=== PATIENT | female | born 1955 | race Caucasian/White ===

== ENCOUNTER 2018-02-08 08:41 | Emergency (ER) | payer OTHER | END 2018-02-08 10:12 | disposition home or self-care (01) | LOC: FTE 08:41 | DX: H92.01 Otalgia, right ear (principal); E11.9 Type 2 diabetes mellitus without complications; Z79.82 Long term (current) use of aspirin; Z79.84 Long term (current) use of oral hypoglycemic drugs | CPT/HCPCS: 99283; Z7502 ==

== ENCOUNTER 2019-01-15 15:24 | Inpatient (IN) | payer OTHER ==
[2019-01-15 15:58] LABS: ADD MAN DIFF? NO
[2019-01-15 16:00] LABS: BASOPHIL # 0.1 10^3/ul (0.0-0.1); BASOPHILS % 0.4 % (0.0-2.0); HEMOGLOBIN 13.4 g/dl (12.0-16.0); LYMPHOCYTES # 0.7 10^3/ul (0.8-2.9); LYMPHOCYTES % 4.9 % (15.0-51.0); MEAN CORPUSCULAR HEMOGLOBIN 28.9 pg (29.0-33.0); MEAN CORPUSCULAR HGB CONC 34.4 g/dl (32.0-37.0); MEAN CORPUSCULAR VOLUME 84.2 fl (82.0-101.0); MEAN PLATELET VOLUME 10.7 fl (7.4-10.4); MONOCYTE # 0.5 10^3/ul (0.3-0.9); MONOCYTES % 3.3 % (0.0-11.0); NEUTROPHIL # 12.8 10^3/ul (1.6-7.5); NEUTROPHILS % 90.8 % (39.0-77.0); PLATELET COUNT 177 10^3/UL (140-415); RED BLOOD COUNT 4.63 10^6/ul (4.20-5.40); RED CELL DISTRIBUTION WIDTH 12.2 % (11.5-14.5)
[2019-01-15 16:00] LABS: WHITE BLOOD COUNT 14.1 10^3/ul (4.8-10.8)
[2019-01-15] MEDS: SODIUM CHLORIDE 0.9% 1L BAG IV* (16:01)
[2019-01-15 16:17] LABS: ALANINE AMINOTRANSFERASE 37 IU/L (13-69); ALBUMIN 4.3 g/dl (3.3-4.9); ALKALINE PHOSPHATASE 197 IU/L (42-121); ANION GAP 17 (5-13); ASPARTATE AMINO TRANSFERASE 41 IU/L (15-46); BILIRUBIN,INDIRECT 0.4 mg/dl (0-1.1); BILIRUBIN,TOTAL 0.4 mg/dl (0.2-1.3); BLOOD UREA NITROGEN 26 mg/dl (7-20); CALCIUM 10.1 mg/dl (8.4-10.2); CARBON DIOXIDE 21 mmol/L (21-31); CHLORIDE 91 mmol/L (97-110); CREATININE 0.76 mg/dl (0.44-1.00); Estimated GFR > 60 mL/min (>60); SODIUM 129 mmol/L (135-144); TOTAL PROTEIN 8.2 g/dl (6.1-8.1)
[2019-01-15 16:20] LABS: PROTIME 17.3 Sec (11.9-14.9); PT RATIO 1.4
[2019-01-15 16:21] LABS: PARTIAL THROMBOPLASTIN TIME 42.5 Sec (23.0-35.0)
[2019-01-15 16:23] LABS: GLUCOSE 531 mg/dl (70-220)
[2019-01-15 16:29] LABS: TROPONIN-I < 0.012 ng/ml (0.000-0.120)
[2019-01-15] MEDS: CEFEPIME 1GM/50 ML (PMX) 50 ML IVPB ×2 (16:36→23:53)
[2019-01-15 16:56] LABS: PHOSPHORUS 2.1 mg/dl (2.5-4.9)
[2019-01-15 16:56] LABS: MAGNESIUM 1.9 mg/dl (1.7-2.5)
[2019-01-15] MEDS: VANCOMYCIN 1 GM (PMX) 250 ML IVPB (17:01)
[2019-01-15 17:22] LABS: MODE ROOM AIR; MetHgb Venous 0.3 %; Sample Type Blood venous; Site VENOUS LINE; Venous COHb 0.3 %; Venous Fraction OxyHgb 40.6 %; Venous Oxygen Sat 40.8 mmHG (55.0-75.0); Venous Total Hemglobin 13.2 g/dl
[2019-01-15] MEDS: KETOROLAC 15 MG INJ IV (17:44)
[2019-01-15] MEDS: ACETAMINOPHEN 325 MG TAB PO (17:44)
[2019-01-15 17:48] LABS: ADD UMIC YES; UR ASCORBIC ACID NEGATIVE (NEGATIVE); UR BACTERIA FEW /HPF (NONE SEEN); UR BILIRUBIN (Dip) NEGATIVE (NEGATIVE); UR BLOOD (Dip) 1+ mg/dL (NEGATIVE); UR CLARITY CLEAR (CLEAR); UR COLOR YELLOW (YELLOW); UR GLUCOSE (Dip) 3+ mg/dL (NEGATIVE); UR KETONES (Dip) 1+ mg/dL (NEGATIVE); UR LEUKOCYTE ESTERASE (Dip) TRACE Leu/ul (NEGATIVE); UR NITRITE (Dip) NEGATIVE (NEGATIVE); UR RBC 1 /HPF (0-5); UR SPECIFIC GRAVITY (Dip) 1.023 (1.003-1.030); UR TOTAL PROTEIN (Dip) 1+ mg/dl (NEGATIVE); UR UROBILINOGEN (Dip) NEGATIVE (NEGATIVE); UR WBC 23 /HPF (0-5)
[2019-01-15] MEDS: SOD CHLORIDE 0.9% 1,000 ML IV (18:15)
[2019-01-15] MEDS ORDERED: ONDANSETRON 4 MG INJ IV (19:00)
[2019-01-15] MEDS ORDERED: ACETAMINOPHEN 325 MG TAB PO (19:00)
[2019-01-15 22:36] LABS: LACTIC ACID 1.8 mmol/L (0.5-2.0)
[2019-01-15] MEDS ORDERED: HYDROCODONE/APAP (5/325) TAB PO (23:00)
[2019-01-15] MEDS ORDERED: IBUPROFEN 800 MG TAB PO (23:00)
[2019-01-15] MEDS ORDERED: NS + KCL 20 MEQ 1,000 ML IV (23:00)
[2019-01-15] MEDS ORDERED: GLUCAGON 1 MG INJ IM (23:30)
[2019-01-15] MEDS ORDERED: GLUCOSE GEL 15 GRAM TUBE BUCCAL (23:30)
[2019-01-15] MEDS ORDERED: GLUCOSE GEL 15 GRAM TUBE PO ×2 (23:30)
[2019-01-15] MEDS ORDERED: DEXTROSE 50% 50 ML SYRINGE IV ×2 (23:30)
[2019-01-15 23:55] LABS: GLUCOSE 484 mg/dl (70-220)
[2019-01-16] MEDS: INSULIN ASPART [NOVOLOG] 3 ML PEN SC ×8 (00:01→20:51)
[2019-01-16] MEDS: SOD CHLORIDE 0.9% 1,000 ML IV ×2 (00:02→13:20)
[2019-01-16] MEDS: ACCU-CHEK XX ×3 (02:00→20:52)
[2019-01-16 05:55] LABS: ADD MAN DIFF? NO
[2019-01-16 06:05] LABS: BASOPHIL # 0.1 10^3/ul (0.0-0.1); BASOPHILS % 0.4 % (0.0-2.0); EOSINOPHILS % 0.1 % (0.0-7.0); HEMATOCRIT 34.6 % (37.0-47.0); HEMOGLOBIN 11.5 g/dl (12.0-16.0); LYMPHOCYTES # 0.9 10^3/ul (0.8-2.9); LYMPHOCYTES % 7.2 % (15.0-51.0); MEAN CORPUSCULAR HEMOGLOBIN 28.9 pg (29.0-33.0); MEAN CORPUSCULAR HGB CONC 33.2 g/dl (32.0-37.0); MEAN CORPUSCULAR VOLUME 86.9 fl (82.0-101.0); MEAN PLATELET VOLUME 11.5 fl (7.4-10.4); NEUTROPHILS % 83.6 % (39.0-77.0); PLATELET COUNT 147 10^3/UL (140-415); RED BLOOD COUNT 3.98 10^6/ul (4.20-5.40); RED CELL DISTRIBUTION WIDTH 12.7 % (11.5-14.5)
[2019-01-16 06:17] LABS: HEMOGLOBIN A1C 11.5 % (0-5.9)
[2019-01-16 06:31] LABS: ANION GAP 9 (5-13); BLOOD UREA NITROGEN 20 mg/dl (7-20); CALCIUM 8.9 mg/dl (8.4-10.2); CARBON DIOXIDE 20 mmol/L (21-31); CHLORIDE 106 mmol/L (97-110); CREATININE 0.46 mg/dl (0.44-1.00); Estimated GFR > 60 mL/min (>60); GLUCOSE 349 mg/dl (70-220); POTASSIUM 4.1 mmol/L (3.5-5.1); SODIUM 135 mmol/L (135-144)
[2019-01-16] MEDS: CEFEPIME 1GM/50 ML (PMX) 50 ML IVPB ×2 (08:42→20:43)
[2019-01-16] MEDS: ASPIRIN (EC) 81 MG TAB PO (08:43)
[2019-01-16] MEDS: ACETAMINOPHEN 325 MG TAB PO (08:43)
[2019-01-16] MEDS: MAGNESIUM OXIDE 400 MG TAB PO ×2 (08:43→20:43)
[2019-01-16] MEDS: LETROZOLE 2.5 MG TAB PO (09:12)
[2019-01-16] MEDS: ENOXAPARIN 40 MG/0.4 ML SYG SC (09:40)
[2019-01-16] MEDS: CHOLECALCIFEROL 2,000 UNIT CAP PO (09:41)
[2019-01-16] MEDS: INSULIN GLARGINE [LANTus] (100 UNITS/ML) SYG SC (11:15)
[2019-01-16] MEDS: metFORMIN 500 MG TAB PO (17:42)
[2019-01-16] MEDS: ATORVASTATIN 10 MG TAB PO (20:44)
[2019-01-16] MEDS: BISACODYL (EC) 5 MG TAB PO (22:12)
[2019-01-17] MEDS: ACCU-CHEK XX ×5 (01:50→20:32)
[2019-01-17] MEDS: SOD CHLORIDE 0.9% 1,000 ML IV ×2 (01:53→13:36)
[2019-01-17] MEDS: INSULIN ASPART [NOVOLOG] 3 ML PEN SC ×7 (07:47→20:23)
[2019-01-17] MEDS: MAGNESIUM OXIDE 400 MG TAB PO ×2 (08:51→20:23)
[2019-01-17] MEDS: EMPAGLIFLOZIN 10 MG TABLET PO (08:51)
[2019-01-17] MEDS: metFORMIN 500 MG TAB PO ×2 (08:51→18:02)
[2019-01-17] MEDS: LINAGLIPTIN 5 MG TABLET PO (08:52)
[2019-01-17] MEDS: CEFEPIME 1GM/50 ML (PMX) 50 ML IVPB ×2 (08:52→22:02)
[2019-01-17] MEDS: ASPIRIN (EC) 81 MG TAB PO (08:52)
[2019-01-17] MEDS: CHOLECALCIFEROL 2,000 UNIT CAP PO (08:52)
[2019-01-17] MEDS: SENNA TAB PO ×2 (08:52→20:23)
[2019-01-17] MEDS: ENOXAPARIN 40 MG/0.4 ML SYG SC (08:54)
[2019-01-17] MEDS: INSULIN GLARGINE [LANTus] (100 UNITS/ML) SYG SC (08:54)
[2019-01-17] MEDS: LETROZOLE 2.5 MG TAB PO (08:55)
[2019-01-17] MEDS ORDERED: CEPASTAT LOZENGE MT (14:30)
[2019-01-17] MEDS: LEVOFLOXACIN 500 MG TAB PO (16:46)
[2019-01-17] MEDS: ACETAMINOPHEN 325 MG TAB PO (18:06)
[2019-01-17] MEDS: ATORVASTATIN 10 MG TAB PO (20:23)
[2019-01-18] MEDS: ACCU-CHEK XX ×5 (02:00→20:51)
[2019-01-18] MEDS: SOD CHLORIDE 0.9% 1,000 ML IV ×3 (02:07→18:00)
[2019-01-18 05:15] LABS: ADD MAN DIFF? NO
[2019-01-18] MEDS: LEVOFLOXACIN 500 MG TAB PO (05:18)
[2019-01-18 05:21] LABS: BASOPHILS % 0.4 % (0.0-2.0); EOSINOPHILS # 0.1 10^3/ul (0.0-0.5); EOSINOPHILS % 0.5 % (0.0-7.0); HEMATOCRIT 33.5 % (37.0-47.0); HEMOGLOBIN 11.6 g/dl (12.0-16.0); LYMPHOCYTES # 1.3 10^3/ul (0.8-2.9); LYMPHOCYTES % 13.6 % (15.0-51.0); MEAN CORPUSCULAR HEMOGLOBIN 29.1 pg (29.0-33.0); MEAN CORPUSCULAR HGB CONC 34.6 g/dl (32.0-37.0); MEAN PLATELET VOLUME 11.5 fl (7.4-10.4); MONOCYTES % 10.8 % (0.0-11.0); NEUTROPHIL # 6.8 10^3/ul (1.6-7.5); NEUTROPHILS % 73.8 % (39.0-77.0); PLATELET COUNT 151 10^3/UL (140-415); RED BLOOD COUNT 3.99 10^6/ul (4.20-5.40); RED CELL DISTRIBUTION WIDTH 12.8 % (11.5-14.5)
[2019-01-18 05:21] LABS: WHITE BLOOD COUNT 9.2 10^3/ul (4.8-10.8)
[2019-01-18 05:34] LABS: ANION GAP 12 (5-13); BLOOD UREA NITROGEN 14 mg/dl (7-20); CALCIUM 8.8 mg/dl (8.4-10.2); CARBON DIOXIDE 23 mmol/L (21-31); CHLORIDE 102 mmol/L (97-110); CREATININE 0.45 mg/dl (0.44-1.00); Estimated GFR > 60 mL/min (>60); GLUCOSE 126 mg/dl (70-220); POTASSIUM 4.1 mmol/L (3.5-5.1); SODIUM 137 mmol/L (135-144)
[2019-01-18] MEDS: INSULIN ASPART [NOVOLOG] 3 ML PEN SC ×7 (07:50→20:51)
[2019-01-18] MEDS: CHOLECALCIFEROL 2,000 UNIT CAP PO (08:47)
[2019-01-18] MEDS: EMPAGLIFLOZIN 10 MG TABLET PO (08:47)
[2019-01-18] MEDS: LINAGLIPTIN 5 MG TABLET PO (08:47)
[2019-01-18] MEDS: SENNA TAB PO ×2 (08:47→20:50)
[2019-01-18] MEDS: ASPIRIN (EC) 81 MG TAB PO (08:48)
[2019-01-18] MEDS: MAGNESIUM OXIDE 400 MG TAB PO ×2 (08:48→20:50)
[2019-01-18] MEDS: LETROZOLE 2.5 MG TAB PO (08:48)
[2019-01-18] MEDS: metFORMIN 500 MG TAB PO ×2 (08:48→17:51)
[2019-01-18] MEDS: INSULIN GLARGINE [LANTus] (100 UNITS/ML) SYG SC (08:50)
[2019-01-18] MEDS: ENOXAPARIN 40 MG/0.4 ML SYG SC (08:50)
[2019-01-18] MEDS: CEFEPIME 1GM/50 ML (PMX) 50 ML IVPB (09:36)
[2019-01-18] MEDS: ACETAMINOPHEN 325 MG TAB PO (17:59)
[2019-01-18] MEDS: DOCUSATE SODIUM 100 MG CAP PO (20:50)
[2019-01-18] MEDS: ATORVASTATIN 10 MG TAB PO (20:50)
[2019-01-19] MEDS: ACCU-CHEK XX ×4 (02:00→17:25)
[2019-01-19] MEDS: LEVOFLOXACIN 500 MG TAB PO (05:00)
[2019-01-19 05:18] LABS: ADD MAN DIFF? NO
[2019-01-19 05:25] LABS: WHITE BLOOD COUNT 8.9 10^3/ul (4.8-10.8)
[2019-01-19 05:25] LABS: BASOPHILS % 0.3 % (0.0-2.0); EOSINOPHILS # 0.1 10^3/ul (0.0-0.5); HEMATOCRIT 33.1 % (37.0-47.0); HEMOGLOBIN 11.2 g/dl (12.0-16.0); LYMPHOCYTES # 1.5 10^3/ul (0.8-2.9); LYMPHOCYTES % 16.3 % (15.0-51.0); MEAN CORPUSCULAR HEMOGLOBIN 28.6 pg (29.0-33.0); MEAN CORPUSCULAR HGB CONC 33.8 g/dl (32.0-37.0); MEAN CORPUSCULAR VOLUME 84.7 fl (82.0-101.0); MEAN PLATELET VOLUME 10.9 fl (7.4-10.4); MONOCYTES % 11.3 % (0.0-11.0); NEUTROPHIL # 6.2 10^3/ul (1.6-7.5); NEUTROPHILS % 70.1 % (39.0-77.0); PLATELET COUNT 193 10^3/UL (140-415); RED BLOOD COUNT 3.91 10^6/ul (4.20-5.40); RED CELL DISTRIBUTION WIDTH 13.1 % (11.5-14.5)
[2019-01-19 05:59] LABS: ANION GAP 12 (5-13); BLOOD UREA NITROGEN 14 mg/dl (7-20); CALCIUM 9.2 mg/dl (8.4-10.2); CARBON DIOXIDE 24 mmol/L (21-31); CHLORIDE 103 mmol/L (97-110); CREATININE 0.47 mg/dl (0.44-1.00); Estimated GFR > 60 mL/min (>60); GLUCOSE 135 mg/dl (70-220); POTASSIUM 3.8 mmol/L (3.5-5.1); SODIUM 139 mmol/L (135-144)
[2019-01-19] MEDS: SOD CHLORIDE 0.9% 1,000 ML IV ×2 (06:50→08:00)
[2019-01-19] MEDS: ASPIRIN (EC) 81 MG TAB PO (09:01)
[2019-01-19] MEDS: metFORMIN 500 MG TAB PO ×2 (09:01→17:53)
[2019-01-19] MEDS: DOCUSATE SODIUM 100 MG CAP PO (09:01)
[2019-01-19] MEDS: EMPAGLIFLOZIN 10 MG TABLET PO (09:01)
[2019-01-19] MEDS: MAGNESIUM OXIDE 400 MG TAB PO (09:01)
[2019-01-19] MEDS: SENNA TAB PO (09:01)
[2019-01-19] MEDS: CHOLECALCIFEROL 2,000 UNIT CAP PO (09:02)
[2019-01-19] MEDS: LINAGLIPTIN 5 MG TABLET PO (09:02)
[2019-01-19] MEDS: LETROZOLE 2.5 MG TAB PO (09:04)
[2019-01-19] MEDS: INSULIN ASPART [NOVOLOG] 3 ML PEN SC ×6 (09:05→17:53)
[2019-01-19] MEDS: ENOXAPARIN 40 MG/0.4 ML SYG SC (09:07)
[2019-01-19] MEDS: INSULIN GLARGINE [LANTus] (100 UNITS/ML) SYG SC (09:07)
== END 2019-01-19 18:15 | disposition home or self-care (01) | DRG 871 ==
LOC: MS1 01-17 17:26 → 6WM 01-16 13:15 → E/R 15:24 → 6WM 18:47
PROC: 4A033R1 Measurement of Arterial Saturation, Peripheral, Percutaneous Approach (ICD-10-PCS; principal; 2019-01-15)
DX: A41.50 Gram-negative sepsis, unspecified (principal); J18.1 Lobar pneumonia, unspecified organism; E87.1 Hypo-osmolality and hyponatremia; E87.2 Acidosis; N10 Acute pyelonephritis; E86.0 Dehydration; R65.20 Severe sepsis without septic shock; E11.65 Type 2 diabetes mellitus with hyperglycemia; E78.5 Hyperlipidemia, unspecified; B96.1 Klebsiella pneumoniae [K. pneumoniae] as the cause of diseases classified elsewhere; I10 Essential (primary) hypertension; Z79.4 Long term (current) use of insulin; Z79.82 Long term (current) use of aspirin; Z85.3 Personal history of malignant neoplasm of breast
CPT/HCPCS: 36415; 71045; 80048; 80053; 81001; 82803; 82947; 82962; 83036; 83605; 83735; 84100; 84484; 85025; 85610; 85730; 87040; 87086; 87400; 93005; 96365; 96366; 96375; 99285-25

== ENCOUNTER 2019-07-07 16:57 | Inpatient (IN) | payer OTHER ==
[2019-07-07 17:42] LABS: ADD MAN DIFF? NO
[2019-07-07 17:44] LABS: WHITE BLOOD COUNT 15.3 10^3/ul (4.8-10.8)
[2019-07-07 17:44] LABS: BASOPHIL # 0.1 10^3/ul (0.0-0.1); BASOPHILS % 0.5 % (0.0-2.0); EOSINOPHILS % 0.2 % (0.0-7.0); HEMATOCRIT 38.5 % (37.0-47.0); HEMOGLOBIN 13.1 g/dl (12.0-16.0); LYMPHOCYTES % 19.3 % (15.0-51.0); MEAN CORPUSCULAR HEMOGLOBIN 28.7 pg (29.0-33.0); MEAN CORPUSCULAR VOLUME 84.4 fl (82.0-101.0); MEAN PLATELET VOLUME 11.7 fl (7.4-10.4); MONOCYTES % 6.6 % (0.0-11.0); NEUTROPHIL # 11.2 10^3/ul (1.6-7.5); PLATELET COUNT 224 10^3/UL (140-415); RED BLOOD COUNT 4.56 10^6/ul (4.20-5.40); RED CELL DISTRIBUTION WIDTH 12.8 % (11.5-14.5)
[2019-07-07] MEDS: morphine 2 MG INJ IV (18:01)
[2019-07-07] MEDS: ONDANSETRON 4 MG INJ IV (18:01)
[2019-07-07] MEDS: SOD CHLORIDE 0.9% 1,000 ML IV ×2 (18:01→22:30)
[2019-07-07 18:02] LABS: URINE BLOOD (Dip) POC Negative (NEGATIVE); URINE KETONES (Dip) POC 1+ (NEGATIVE); URINE LEUKOCYTE EST (Dip) POC 1+ (NEGATIVE); URINE NITRITE (Dip) POC Negative (NEGATIVE); URINE TOTAL PROTEIN POC 2+ (NEGATIVE)
[2019-07-07 18:07] LABS: ANION GAP 16 (5-13); BLOOD UREA NITROGEN 29 mg/dl (7-20); CALCIUM 9.6 mg/dl (8.4-10.2); CARBON DIOXIDE 22 mmol/L (21-31); CHLORIDE 89 mmol/L (97-110); CREATININE 1.61 mg/dl (0.44-1.00); Estimated GFR 32 mL/min (>60); SODIUM 127 mmol/L (135-144)
[2019-07-07 18:08] LABS: POTASSIUM 6.3 mmol/L (3.5-5.1)
[2019-07-07 18:09] LABS: GLUCOSE 538 mg/dl (70-220)
[2019-07-07 18:18] LABS: TROPONIN-I 0.037 ng/ml (0.000-0.120)
[2019-07-07 18:44] LABS: ALANINE AMINOTRANSFERASE 62 IU/L (13-69); ALBUMIN 4.4 g/dl (3.3-4.9); ALKALINE PHOSPHATASE 239 IU/L (42-121); ASPARTATE AMINO TRANSFERASE 53 IU/L (15-46); BILIRUBIN,INDIRECT 0.6 mg/dl (0-1.1); BILIRUBIN,TOTAL 0.6 mg/dl (0.2-1.3); LIPASE 171 U/L (23-300); TOTAL PROTEIN 7.9 g/dl (6.1-8.1)
[2019-07-07] MEDS: ALBUTEROL 0.5% (NEB) 2.5 MG/0.5 ML AMP INH (18:53)
[2019-07-07] MEDS ORDERED: DEXTROSE 50% 50 ML SYRINGE IV (19:00)
[2019-07-07] MEDS: INSULIN REGULAR, HUMAN 100 UNIT/1 ML 3ML VIAL IVP (19:10)
[2019-07-07] MEDS: ACETAMINOPHEN 325 MG TAB PO (19:11)
[2019-07-07] MEDS: PIPER-TAZO 2.25 GM (PMX) 50 ML IVPB (19:11)
[2019-07-07] MEDS ORDERED: NITROGLYCERIN (SL) 0.4 MG TAB SL (22:30)
[2019-07-07] MEDS ORDERED: ONDANSETRON 4 MG INJ IV (22:30)
[2019-07-07 23:09] LABS: CREATINE KINASE 38 IU/L (23-200)
[2019-07-07 23:21] LABS: CK INDEX 2.1; CK-MB 0.81 ng/ml (0.0-2.4); TROPONIN-I 0.072 ng/ml (0.000-0.120)
[2019-07-07] MEDS: NA POLYST SULFON 15 GM/60 ML BTL PO (23:48)
[2019-07-07] MEDS: CEFTRIAXONE 1 GM/50 ML (PMX) 50 ML IVPB (23:49)
[2019-07-08] MEDS: INSULIN GLARGINE [LANTus] (100 UNITS/ML) SYG SC ×2 (00:12→20:37)
[2019-07-08] MEDS: NPH, HUMAN INSULIN ISOPHANE 3ML VIAL SC (00:12)
[2019-07-08] MEDS: INSULIN REGULAR, HUMAN 100 UNIT/1 ML 3ML VIAL SC (00:13)
[2019-07-08 01:28] LABS: ADD UMIC YES; UR ASCORBIC ACID NEGATIVE (NEGATIVE); UR BILIRUBIN (Dip) NEGATIVE (NEGATIVE); UR BLOOD (Dip) 1+ mg/dL (NEGATIVE); UR CLARITY CLEAR (CLEAR); UR COLOR STRAW (YELLOW); UR GLUCOSE (Dip) 3+ mg/dL (NEGATIVE); UR KETONES (Dip) NEGATIVE (NEGATIVE); UR LEUKOCYTE ESTERASE (Dip) NEGATIVE Leu/ul (NEGATIVE); UR NITRITE (Dip) NEGATIVE (NEGATIVE); UR RBC 0 /HPF (0-5); UR SPECIFIC GRAVITY (Dip) 1.006 (1.003-1.030); UR TOTAL PROTEIN (Dip) NEGATIVE (NEGATIVE); UR UROBILINOGEN (Dip) NEGATIVE (NEGATIVE); UR WBC 1 /HPF (0-5)
[2019-07-08] MEDS ORDERED: GLUCOSE GEL 15 GRAM TUBE PO ×2 (01:30)
[2019-07-08] MEDS ORDERED: DEXTROSE 50% 50 ML SYRINGE IV ×2 (01:30)
[2019-07-08] MEDS ORDERED: GLUCOSE GEL 15 GRAM TUBE BUCCAL (01:30)
[2019-07-08] MEDS ORDERED: GLUCAGON 1 MG INJ IM (01:30)
[2019-07-08] MEDS: ACCU-CHEK XX ×2 (02:30→05:41)
[2019-07-08] MEDS: INSULIN ASPART [NOVOLOG] 3 ML PEN SC ×8 (03:17→20:38)
[2019-07-08 06:08] LABS: ADD MAN DIFF? NO
[2019-07-08 06:16] LABS: WHITE BLOOD COUNT 9.4 10^3/ul (4.8-10.8)
[2019-07-08 06:16] LABS: BASOPHIL # 0.1 10^3/ul (0.0-0.1); BASOPHILS % 0.5 % (0.0-2.0); EOSINOPHILS # 0.1 10^3/ul (0.0-0.5); EOSINOPHILS % 1.2 % (0.0-7.0); HEMATOCRIT 35.3 % (37.0-47.0); LYMPHOCYTES # 2.2 10^3/ul (0.8-2.9); LYMPHOCYTES % 23.2 % (15.0-51.0); MEAN CORPUSCULAR HEMOGLOBIN 28.8 pg (29.0-33.0); MEAN CORPUSCULAR VOLUME 84.9 fl (82.0-101.0); MEAN PLATELET VOLUME 11.1 fl (7.4-10.4); MONOCYTE # 0.8 10^3/ul (0.3-0.9); MONOCYTES % 8.7 % (0.0-11.0); NEUTROPHIL # 6.2 10^3/ul (1.6-7.5); NEUTROPHILS % 66.3 % (39.0-77.0); PLATELET COUNT 182 10^3/UL (140-415); RED BLOOD COUNT 4.16 10^6/ul (4.20-5.40); RED CELL DISTRIBUTION WIDTH 12.9 % (11.5-14.5)
[2019-07-08 06:38] LABS: ANION GAP 10 (5-13); BLOOD UREA NITROGEN 18 mg/dl (7-20); CALCIUM 9.1 mg/dl (8.4-10.2); CARBON DIOXIDE 27 mmol/L (21-31); CHLORIDE 101 mmol/L (97-110); CREATINE KINASE 32 IU/L (23-200); CREATININE 0.59 mg/dl (0.44-1.00); Estimated GFR > 60 mL/min (>60); GLUCOSE 260 mg/dl (70-220); POTASSIUM 4.4 mmol/L (3.5-5.1); SODIUM 138 mmol/L (135-144)
[2019-07-08 06:48] LABS: CK INDEX 2.4; CK-MB 0.78 ng/ml (0.0-2.4)
[2019-07-08 06:53] LABS: TROPONIN-I 0.143 ng/ml (0.000-0.120)
[2019-07-08] MEDS: ASPIRIN (EC) 81 MG TAB PO (08:48)
[2019-07-08] MEDS: SOD CHLORIDE 0.9% 1,000 ML IV ×2 (08:48→17:39)
[2019-07-08] MEDS: ENOXAPARIN 30 MG/0.3 ML SYG SC (08:53)
[2019-07-08] MEDS: morphine 2 MG INJ IV (08:54)
[2019-07-08 12:12] LABS: HEMOGLOBIN A1C 10.5 % (0-5.9)
[2019-07-08 13:25] LABS: TROPONIN-I 0.102 ng/ml (0.000-0.120)
[2019-07-08 18:03] LABS: TROPONIN-I 0.075 ng/ml (0.000-0.120)
[2019-07-08] MEDS ORDERED: INSULIN GLARGINE [LANTus] (100 UNITS/ML) SYG SC (20:00)
[2019-07-08] MEDS: CEFTRIAXONE 1 GM/50 ML (PMX) 50 ML IVPB (23:34)
[2019-07-09] MEDS: ACCU-CHEK XX (02:22)
[2019-07-09] MEDS: SOD CHLORIDE 0.9% 1,000 ML IV ×2 (05:03→14:30)
[2019-07-09 05:53] LABS: CHOLESTEROL 112 mg/dl (100-200)
[2019-07-09 05:53] LABS: CHOL/HDL RATIO 4.1 RATIO; HDL CHOLESTEROL 27 mg/dl (35-98); LDL CHOLESTEROL,CALCULATED 51 mg/dl; TRIGLYCERIDES 168 mg/dl (0-149)
[2019-07-09] MEDS: INSULIN ASPART [NOVOLOG] 3 ML PEN SC ×7 (07:56→21:06)
[2019-07-09] MEDS: ENOXAPARIN 30 MG/0.3 ML SYG SC (09:28)
[2019-07-09] MEDS: REGADENOSON 0.4 MG/5 ML SYG (12:20)
[2019-07-09] MEDS: ASPIRIN (EC) 81 MG TAB PO (14:48)
[2019-07-09] MEDS: ACETAMINOPHEN 325 MG TAB PO (16:53)
[2019-07-09] MEDS: INSULIN GLARGINE [LANTus] (100 UNITS/ML) SYG SC (21:07)
[2019-07-09] MEDS ORDERED: AMLODIPINE 5 MG TAB GTB (22:30)
[2019-07-09] MEDS: AMLODIPINE 5 MG TAB PO (23:05)
[2019-07-09] MEDS: SOD CHLORIDE 0.45% 1,000 ML IV (23:05)
[2019-07-10] MEDS: ACCU-CHEK XX (02:00)
[2019-07-10] MEDS: INSULIN ASPART [NOVOLOG] 3 ML PEN SC ×7 (08:00→21:00)
[2019-07-10] MEDS ORDERED: AMLODIPINE 5 MG TAB PO (09:00)
[2019-07-10] MEDS: ASPIRIN (EC) 81 MG TAB PO (09:10)
[2019-07-10] MEDS: AMLODIPINE 5 MG TAB PO ×2 (09:11→20:22)
[2019-07-10] MEDS: ENOXAPARIN 30 MG/0.3 ML SYG SC (09:15)
[2019-07-10] MEDS: ACETAMINOPHEN 325 MG TAB PO (17:22)
[2019-07-10] MEDS: SOD CHLORIDE 0.45% 1,000 ML IV (17:22)
[2019-07-10] MEDS: INSULIN GLARGINE [LANTus] (100 UNITS/ML) SYG SC (20:33)
[2019-07-11] MEDS: ACCU-CHEK XX (02:44)
[2019-07-11] MEDS: INSULIN ASPART [NOVOLOG] 3 ML PEN SC ×7 (07:39→20:31)
[2019-07-11] MEDS: ASPIRIN (EC) 81 MG TAB PO (08:31)
[2019-07-11] MEDS: AMLODIPINE 5 MG TAB PO ×2 (08:31→20:31)
[2019-07-11] MEDS: ENOXAPARIN 30 MG/0.3 ML SYG SC (08:35)
[2019-07-11] MEDS: SOD CHLORIDE 0.45% 1,000 ML IV (17:14)
[2019-07-11] MEDS: INSULIN GLARGINE [LANTus] (100 UNITS/ML) SYG SC ×2 (20:00→22:30)
[2019-07-11] MEDS: ACETAMINOPHEN 325 MG TAB PO (22:33)
[2019-07-12] MEDS: ACCU-CHEK XX (02:51)
[2019-07-12] MEDS: INSULIN ASPART [NOVOLOG] 3 ML PEN SC ×7 (08:10→21:22)
[2019-07-12] MEDS: AMLODIPINE 5 MG TAB PO ×2 (09:02→21:03)
[2019-07-12] MEDS: ASPIRIN (EC) 81 MG TAB PO (09:02)
[2019-07-12] MEDS: ENOXAPARIN 30 MG/0.3 ML SYG SC (09:09)
[2019-07-12] MEDS: SOD CHLORIDE 0.45% 1,000 ML IV (16:21)
[2019-07-12] MEDS: ACETAMINOPHEN 325 MG TAB PO ×2 (16:29→21:16)
[2019-07-12] MEDS: INSULIN GLARGINE [LANTus] (100 UNITS/ML) SYG SC (20:00)
[2019-07-13] MEDS: ACCU-CHEK XX (02:00)
[2019-07-13 05:37] LABS: ADD MAN DIFF? NO
[2019-07-13 05:44] LABS: WHITE BLOOD COUNT 8.1 10^3/ul (4.8-10.8)
[2019-07-13 05:44] LABS: BASOPHIL # 0.1 10^3/ul (0.0-0.1); BASOPHILS % 0.9 % (0.0-2.0); EOSINOPHILS # 0.3 10^3/ul (0.0-0.5); EOSINOPHILS % 3.6 % (0.0-7.0); HEMATOCRIT 35.7 % (37.0-47.0); HEMOGLOBIN 11.8 g/dl (12.0-16.0); LYMPHOCYTES # 2.6 10^3/ul (0.8-2.9); LYMPHOCYTES % 31.5 % (15.0-51.0); MEAN CORPUSCULAR HEMOGLOBIN 28.6 pg (29.0-33.0); MEAN CORPUSCULAR HGB CONC 33.1 g/dl (32.0-37.0); MEAN CORPUSCULAR VOLUME 86.7 fl (82.0-101.0); MEAN PLATELET VOLUME 10.4 fl (7.4-10.4); MONOCYTE # 0.6 10^3/ul (0.3-0.9); MONOCYTES % 7.4 % (0.0-11.0); NEUTROPHIL # 4.6 10^3/ul (1.6-7.5); NEUTROPHILS % 56.2 % (39.0-77.0); PLATELET COUNT 242 10^3/UL (140-415); RED BLOOD COUNT 4.12 10^6/ul (4.20-5.40); RED CELL DISTRIBUTION WIDTH 12.9 % (11.5-14.5)
[2019-07-13 06:11] LABS: ANION GAP 8 (5-13); BLOOD UREA NITROGEN 9 mg/dl (7-20); CALCIUM 9.2 mg/dl (8.4-10.2); CARBON DIOXIDE 28 mmol/L (21-31); CHLORIDE 103 mmol/L (97-110); CREATININE 0.47 mg/dl (0.44-1.00); Estimated GFR > 60 mL/min (>60); GLUCOSE 151 mg/dl (70-220); POTASSIUM 4.2 mmol/L (3.5-5.1); SODIUM 139 mmol/L (135-144)
[2019-07-13] MEDS: INSULIN ASPART [NOVOLOG] 3 ML PEN SC ×6 (07:57→17:03)
[2019-07-13] MEDS: AMLODIPINE 5 MG TAB PO (08:54)
[2019-07-13] MEDS: ASPIRIN (EC) 81 MG TAB PO (08:54)
[2019-07-13] MEDS: ENOXAPARIN 30 MG/0.3 ML SYG SC (08:58)
[2019-07-13] MEDS: morphine 2 MG INJ IV (11:03)
[2019-07-13] MEDS: BISACODYL (EC) 5 MG TAB PO (12:15)
[2019-07-13] MEDS: MAGNESIUM HYDROXIDE 30ML CUP PO (12:15)
[2019-07-13] MEDS: DOCUSATE SODIUM 100 MG CAP PO (12:15)
== END 2019-07-13 18:43 | disposition home or self-care (01) | DRG 683 ==
LOC: E/R 16:57 → 6WM 19:19
DX: N17.9 Acute kidney failure, unspecified (principal); N39.0 Urinary tract infection, site not specified; E87.1 Hypo-osmolality and hyponatremia; R07.9 Chest pain, unspecified; E11.65 Type 2 diabetes mellitus with hyperglycemia; E87.5 Hyperkalemia; Z85.3 Personal history of malignant neoplasm of breast
CPT/HCPCS: 36415; 71045; 73562; 76705; 78452; 80048; 80061; 80076; 81001; 81003; 82550; 82553; 82962; 83036; 83690; 84484; 85025; 87040-91; 87086; 93005; 93017; 93306; 93971; 94664; 96374; 96375; 99285-25